=== PATIENT | male | born 1955 | race Asian ===

== ENCOUNTER 2016-12-04 00:13 | Emergency (ER) | payer SELFPAY ==
[~2016-12-04] VITALS: Ht 172.7 cm; Wt 59.0 kg
[2016-12-04 00:26] VITALS: Ht 172.7 cm; Wt 59.0 kg
--- NOTE | 2016-12-04 02:41 | ERD ---
ER Documentation Chief Complaint Date/Time DATE: 12/04/16 TIME: 02:37 Chief Complaint sp GLF, left hand abrasion, right knee pain, old swelling right hand HPI 61-year-old male presents to emergency department for complaints of right knee pain and abrasion, left hand pain and abrasion after tripping and falling while walking today. Patient denies any dizziness when this happened. Patient also is complaining of right hand pain and swelling, has had chronic swelling on the right hand, in the last 2 days, the swelling and redness has been more worse, throbbing pain, 8/10 scale, having any fever. Patient denies any trauma on affected area of the right hand. Patient denies any fever or chills. Patient denies any numbness or tingling. Patient did not take any medications to apply symptoms. ROS All systems reviewed and are negative except as per history of present illness. Medications Home Meds Active Scripts Tramadol HCl (Tramadol HCl) 50 Mg Tablet, 50 MG PO Q6 Y for SEVERE PAIN LEVEL 7- 10, #20 TAB Prov:MAY HANCOCK NP 12/04/16 Sulfamethoxazole-Trimethoprim* (Bactrim* DS) 800-160 Mg Tab, 1 TAB PO BID for 10 Days, TAB Prov:MAY HANCOCK NP 12/04/16 Amoxicillin/Potassium Clav (Amox-Clav 875-125 mg Tablet) 875-125 mg Tab, 1 TAB PO BID for 10 Days, #20 TAB Prov:MAY HANCOCK NP 12/04/16 Reported Medications [none] Unknown Strength No Conflict Check 12/04/16 Allergies Allergies: Coded Allergies: No Known Allergy (Unverified , 12/04/16) PMhx/Soc Medical and Surgical Hx: pt denies Medical Hx, pt denies Surgical Hx History of Surgery: No Anesthesia Reaction: No Hx Neurological Disorder: No Hx Respiratory Disorders: No Hx Cardiac Disorders: No Hx Psychiatric Problems: No Hx Miscellaneous Medical Probl: No Hx Alcohol Use: No Hx Substance Use: No Hx Tobacco Use: No Smoking Status: Never smoker FmHx Family History: No coronary disease, No diabetes, No other Physical Exam Vitals Vital Signs Date Time Temp Pulse Resp B/P Pulse Ox O2 Delivery O2 Flow Rate FiO2 12/04/16 03:46 98.0 12/04/16 03:09 96 Room Air 12/04/16 03:06 98.8 84 16 104/73 12/04/16 00:26 97.8 113 20 121/86 100 Physical Exam GENERAL: The patient is well developed and appropriate for usual state of health, in no apparent distress. CHEST: Clear to auscultation bilaterally. There are no rales, wheezes or rhonchi. HEART: Regular rate and rhythm. No murmurs, clicks, rubs or gallops. No S3 or S4. ABDOMEN: Soft, nontender and nondistended. Good bowel sounds. No rebound or guarding. No gross peritonitis. No gross organomegaly or masses. No Santiago sign or McBurney point tenderness. BACK: No midline or flank tenderness. EXTREMITIES: Noted redness and swelling of the right hand, good circulation, tender on palpation. Able to do full range of motion of the right knee and the left hand without any restriction, noted abrasion on the right knee and the dorsal aspect of the left hand. Equal pulses bilaterally. full range of motion of other joints of the body. Grossly neurovascularly intact. NEURO: Alert and oriented. Cranial nerves 2-12 intact. Motor strength in all 4 extremities with 5/5 strength. Sensation grossly intact. Normal speech and gait. SKIN: There is no apparent rash or petechia. The skin is warm and dry. HEMATOLOGIC AND LYMPHATIC: There is no evidence of excessive bruising or lymphedema. No gross cervical, axillary, or inguinal lymphadenopathy. Result Diagram: 12/04/16 0249 12/04/16 0249 Results 24 hrs Laboratory Tests Test 12/04/16 02:49 White Blood Count 11.610^3/ul Red Blood Count 4.4910^6/ul Hemoglobin 13.5g/dl Hematocrit 40.8% Mean Corpuscular Volume 90.9fl Mean Corpuscular Hemoglobin 30.1pg Mean Corpuscular Hemoglobin Concent 33.1g/dl Red Cell Distribution Width 16.0% Platelet Count 58205^3/UL Mean Platelet Volume 11.0fl Neutrophils % 85.0% Lymphocytes % 5.9% Monocytes % 7.7% Eosinophils % 0.2% Basophils % 0.2% Nucleated Red Blood Cells % 0.0/100WBC Neutrophils # 9.910^3/ul Lymphocytes # 0.710^3/ul Monocytes # 0.910^3/ul Eosinophils # 0.010^3/ul Basophils # 0.010^3/ul Nucleated Red Blood Cells # 0.010^3/ul Sodium Level 136mmol/L Potassium Level 3.5mmol/L Chloride Level 94mmol/L Carbon Dioxide Level 31mmol/L Anion Gap 15 Blood Urea Nitrogen 35mg/dl Creatinine 1.30mg/dl Glucose Level 120mg/dl Lactic Acid Level 1.2mmol/L Calcium Level 8.7mg/dl Total Bilirubin 0.5mg/dl Direct Bilirubin 0.00mg/dl Indirect Bilirubin 0.5mg/dl Aspartate Amino Transf (AST/SGOT) 43IU/L Alanine Aminotransferase (ALT/SGPT) 35IU/L Alkaline Phosphatase 265IU/L Total Protein 6.9g/dl Albumin 2.9g/dl Globulin 4.00g/dl Albumin/Globulin Ratio 0.72 Current Medications Medications (Trade) Dose Ordered Sig/Xochilt Route PRN Reason Start Time Stop Time Status Last Admin Dose Admin Piperacillin Sod/ Tazobactam Sod (Zosyn 3.375gm/ 100 ml (Pmx)) 100 ml @ 200 mls/hr ONCE ONCE IVPB 12/04/16 04:30 12/04/16 04:59 PROCEDURE: XR Left hand. CLINICAL INDICATION: Left hand pain status post fall. TECHNIQUE: AP, oblique and lateral views of the left hand were obtained. COMPARISON: No prior studies are available for comparison. FINDINGS: Reference marker is directed towards the medial wrist. Deep to the reference marker there are small erosions at the ulnar styloid as well as at the triquetrum and lunate. In the lateral wrist there is a central erosion at the scaphoid. Small marginal erosions are seen at the medial base of the second proximal phalanx. Juxta-articular erosions are seen at the interphalangeal joint of the left thumb as well as at the fourth and fifth PIP joints and the third DIP joint, greater at the third DIP joint. Findings suggest an erosive osteoarthropathy. Soft tissue swelling is seen over the interphalangeal joint of the thumb as well as at the third, fourth and fifth PIP joints and the second, third and fourth DIP joints. Bone mineralization is substantially preserved. Erosions at the ulnar styloid and at the medial base of the second proximal phalanx would be concerning for an manifestation of rheumatoid arthritis, and are otherwise nonspecific. IMPRESSION: 1. Extensive small osseous erosions in the wrist as well as at the interphalangeal joints of the thumb and fingers suggest a variant of erosive osteoarthritis. 2. No evident acute fracture or dislocation. RPTAT: [facility] Physician Tera Date Time Electronically viewed and signed by Bennie James Physician on 12/04/2016 03:33 RS/ CC: MAY HANCOCK NP I discussed this case with my attending physician, patient is right-hand cellulitis, he said to treat the patient with IV Zosyn, sent the patient home with Augmentin and Bactrim, strict return to her percussion for worsening symptoms, recheck in 2 days. Patient does not have any symptoms of sepsis at this time, lactic acid is normal, mild elevation of white count most likely from the infection. Procedures/MDM Medical Decision Making: Patient's right knee pain left hand pain most likely from the abrasion, patient right-hand is red and swollen consistent with cellulitis, no symptoms of sepsis at this time. There is no suspicion for neurovascular compromise. Patient has intact sensation and circulation of the affected extremity. There is low suspicion for septic arthritis. Patient does not have any fever. Radiology exams of the affected area does not show any fracture or dislocation. Disposition: Home. Patient is given prescription for tramadol for pain, Augmentin, Bactrim. Patient was advised to elevate the affected area and apply ice on affected area. Patient was advised that if symptoms are worse, numbness , tingling, high fever, unable to move joint, worsening symptoms, to return to emergency department immediately. Otherwise, patient is advised to follow up with the primary care doctor in 2 days Departure Diagnosis: Primary Impression: Cellulitis Site of cellulitis: extremity Site of cellulitis of extremity: upper extremity Laterality: right Qualified Code: L03.113 - Cellulitis of right upper extremity Additional Impressions: Abrasions of multiple sites Knee contusion Encounter type: initial encounter Laterality: right Qualified Code: S80.01XA - Contusion of right knee, initial encounter Hand contusion Encounter type: initial encounter Laterality: left Qualified Code: S60.222A - Contusion of left hand, initial encounter Condition: Stable Patient Instructions: Abrasion, Cellulitis, Contusion, Hand, Contusion, Lower Extremity Additional Instructions: Patient is given prescription for tramadol for pain, Augmentin, Bactrim. Patient was advised to elevate the affected area and apply ice on affected area. Patient was advised that if symptoms are worse, numbness, tingling, high fever, unable to move joint, worsening symptoms, to return to emergency department immediately. Otherwise, patient is advised to follow up with the primary care doctor in 2 days MAY HANCOCK NP Dec 04, 2016 02:40
[2016-12-04 03:18] LABS: ADD SCAN DIFF NO
--- NOTE | 2016-12-04 03:33 | RADRPT ---
PROCEDURE: XR Left hand. CLINICAL INDICATION: Left hand pain status post fall. TECHNIQUE: AP, oblique and lateral views of the left hand were obtained. COMPARISON: No prior studies are available for comparison. FINDINGS: Reference marker is directed towards the medial wrist. Deep to the reference marker there are small erosions at the ulnar styloid as well as at the triquetrum and lunate. In the lateral wrist there is a central erosion at the scaphoid. Small marginal erosions are seen at the medial base of the second proximal phalanx. Juxta-articular erosions are seen at the interphalangeal joint of the left thumb as well as at the f ourth and fifth PIP joints and the third DIP joint, greater at the third DIP joint. Findings suggest an erosive osteoarthropathy. Soft tissue swelling is seen over the interphalangeal joint of the thumb as well as at the third, fourth and fifth PIP joints and the second, third and f ourth DIP joints. Bone mineralization is substantially preserved. Erosions at the ulnar styloid and at the medial base of the second proximal phalanx would be concern ing for an manifestation of rheumatoid arthritis, and are otherwise nonspecific. IMPRESSION: 1. Extensive small osseous erosions in the wrist as well as at the interphalangeal joints of the th umb and fingers suggest a variant of erosive osteoarthritis. 2. No evident acute fracture or dislocation. RPTAT: [facility] Physician Tera Date Time Electronically viewed and signed by Physician Tera on 12/04/2016 03:33 RS/
[2016-12-04 03:35] LABS: BASOPHILS % 0.2 % (0.0-2.0); EOSINOPHILS % 0.2 % (0.0-7.0); HEMATOCRIT 40.8 % (42.0-52.0); HEMOGLOBIN 13.5 g/dl (14.0-18.0); LYMPHOCYTES # 0.7 10^3/ul (0.8-2.9); LYMPHOCYTES % 5.9 % (15.0-51.0); MEAN CORPUSCULAR HEMOGLOBIN 30.1 pg (29.0-33.0); MEAN CORPUSCULAR HGB CONC 33.1 g/dl (32.0-37.0); MEAN CORPUSCULAR VOLUME 90.9 fl (82.0-101.0); MONOCYTE # 0.9 10^3/ul (0.3-0.9); MONOCYTES % 7.7 % (0.0-11.0); NEUTROPHIL # 9.9 10^3/ul (1.6-7.5); PLATELET COUNT 261 10^3/UL (140-415); RED BLOOD COUNT 4.49 10^6/ul (4.70-6.10); WHITE BLOOD COUNT 11.6 10^3/ul (4.8-10.8)
[2016-12-04 03:42] LABS: ALBUMIN 2.9 g/dl (3.3-4.9); POTASSIUM 3.5 mmol/L (3.5-5.1)
--- NOTE | 2016-12-04 03:43 | RADRPT ---
PROCEDURE: Right knee x-ray CLINICAL INDICATION: Right knee pain status post fall and injury. TECHNIQUE: AP, lateral and oblique views of the right knee were obtained. COMPARISON: None FINDINGS: There is normal mineralization. No acute fracture or dislocation is seen. Superior and inferior enthesophytes of the patella. Small marginal osteophytes at the articular pat lyle. Nonspecific chronic periosteal reactions are seen over the posterior femoral metaphysis, the posteri or partially visualized mid femoral diaphysis, proximal metaphysis of the medial tibia, and the prox imal diaphyses of the fibula and tibia. There is a likely small joint effusion, otherwise nonspecific. There is no significant soft tissue swelling. Nonspecific calcific density is seen in the region of the insertional popliteus. MRI examination ma y be of further use to exclude an osteochondral body in this region. IMPRESSION: Small joint effusion, without acute fracture. RPTAT: [facility] Physician Tera Date Time Electronically viewed and signed by Physician Tera on 12/04/2016 03:42 RS/
[2016-12-04 03:44] LABS: CREATININE 1.3 mg/dl (0.61-1.24)
[2016-12-04 03:45] LABS: ALBUMIN/GLOBULIN RATIO 0.72; BILIRUBIN,INDIRECT 0.5 mg/dl (0-1.1); BILIRUBIN,TOTAL 0.5 mg/dl (0.2-1.3); CALCIUM 8.7 mg/dl (8.4-10.2); TOTAL PROTEIN 6.9 g/dl (6.1-8.1)
[2016-12-04] MEDS ORDERED: BACTDS PO (04:15)
[2016-12-04] MEDS ORDERED: AMOX1TAB10 PO (04:15)
[2016-12-04] MEDS ORDERED: TRAM50TA2 PO (04:15)
[2016-12-04] MEDS ORDERED: PIPER-TAZO 3.375 GM IV (PMX) 100 ML IVPB ONE (04:30)
[2016-12-04 05:25] VITALS: BP 120/73; PULSE 111; RESP 16; TEMP 97
== END 2016-12-04 05:26 | disposition home or self-care (01) ==
LOC: FTE 00:13
DX: L03.113 Cellulitis of right upper limb (principal); S80.01XA Contusion of right knee, initial encounter; S60.222A Contusion of left hand, initial encounter; W01.0XXA Fall on same level from slipping, tripping and stumbling without subsequent striking against object, initial encounter; Y92.9 Unspecified place or not applicable
CPT/HCPCS: 36415; 73562; 80053; 83605; 85025; 96374

== ENCOUNTER 2017-07-19 20:49 | Inpatient (IN) | payer BC ==
[~2017-07-19] VITALS: Ht 167.6 cm; Wt 53.2 kg
[~2017-07-19 20:49] MED LIST: AMOX1TAB10 PO; BACTDS PO; TRAM50TA2 PO
--- NOTE | 2017-07-19 21:08 | ERD ---
ER Documentation Chief Complaint Chief Complaint BIB FAMILY C/O CHEST PAIN WITH SOB X 1 WEEK. HPI This is a 62-year-old male who is presenting with chest pain and shortness of breath. The patient describes moderate to severe left-sided nonradiating chest pain that is sharp in quality, worsens with walking and exertion, previously relieved by rest, but the pain has become present even at rest over the last day. The patient noticed the chest pain 1-2 weeks ago, but it had been improving with rest, so he did not want to come in at that time. The patient also endorses shortness of breath and dyspnea on exertion as well as at rest presently. He does not endorse any sweating episodes. He has been a little lightheaded. He has not been nauseated and he has not vomited. The patient denies feeling sick recently. The patient denies fever or chills. The patient has had no headache or vision changes. The patient does not endorse neck or back pain. The patient denies abdominal pain or changes to bowel movements or urination. The patient has had no focal deficits. The patient has had no weakness or numbness or tingling to the face or extremities. ROS All systems reviewed and are negative except as per history of present illness. Medications Home Meds Active Scripts Tramadol HCl (Tramadol HCl) 50 Mg Tablet, 50 MG PO Q6 Y for SEVERE PAIN LEVEL 7- 10, #20 TAB Prov:MAY HANCOCK NP 12/04/16 Sulfamethoxazole-Trimethoprim* (Bactrim* DS) 800-160 Mg Tab, 1 TAB PO BID for 10 Days, TAB Prov:MAY HANCOCK NP 12/04/16 Amoxicillin/Potassium Clav (Amox-Clav 875-125 mg Tablet) 875-125 mg Tab, 1 TAB PO BID for 10 Days, #20 TAB Prov:MAY HANCOCK NP 12/04/16 Reported Medications Aspirin* (Aspirin* Chew) 81 Mg Tab.chew, 81 MG PO DAILY, TAB.CHEW 07/20/17 Carvedilol* (Coreg*) 12.5 Mg Tablet, 12.5 MG PO BID, #60 TAB 07/20/17 Rivaroxaban* (Xarelto*) 20 Mg Tablet, 20 MG PO WITH DINNER, TAB 07/20/17 Furosemide* (Furosemide*) 40 Mg Tablet, 40 MG PO DAILY, TAB 07/20/17 [none] Unknown Strength No Conflict Check 12/04/16 Allergies Allergies: Coded Allergies: No Known Allergy (Unverified , 12/04/16) PMhx/Soc History of Surgery: No Anesthesia Reaction: No Hx Neurological Disorder: No Hx Respiratory Disorders: No Hx Cardiac Disorders: Yes (HTN, previous MT, CHF) Hx Psychiatric Problems: No Hx Miscellaneous Medical Probl: Yes (CKD) Hx Alcohol Use: No Hx Substance Use: No Hx Tobacco Use: No FmHx Family History: No diabetes Physical Exam Vitals Vital Signs Date Time Temp Pulse Resp B/P Pulse Ox O2 Delivery O2 Flow Rate FiO2 07/19/17 23:10 77 20 128/72 99 Room Air 07/19/17 20:52 96.8 52 18 163/82 99 Physical Exam Const: No apparent distress, well-developed, well-nourished Head: Normocephalic, Atraumatic Eyes: Normal Conjunctiva. Extraocular movements intact. Pupils equal, round and reactive to light ENT: Normal External Ears, Nose and Mouth. Neck: Full range of motion. No meningismus. Resp: + Bibasilar rales, No wheezes or rhonchi Cardio: Regular rate and rhythm. No murmurs, rubs or gallops Abd: Soft, non tender, non distended. Normal bowel sounds Skin: No petechiae or rashes Back: No midline tenderness. No CVA tenderness Ext: No cyanosis, or edema Neur: Awake and alert, oriented 4. Cranial nerves intact. No facial droop. Normal strength, sensation and coordination. Psych: Anxious appearing Result Diagram: 07/20/17 0757 07/20/17 0757 Results 24 hrs Laboratory Tests Test 07/19/17 21:15 White Blood Count 4.910^3/ul Red Blood Count 5.2510^6/ul Hemoglobin 15.3g/dl Hematocrit 47.2% Mean Corpuscular Volume 89.9fl Mean Corpuscular Hemoglobin 29.1pg Mean Corpuscular Hemoglobin Concent 32.4g/dl Red Cell Distribution Width 14.0% Platelet Count 08499^3/UL Mean Platelet Volume 10.1fl Neutrophils % 60.0% Lymphocytes % 26.3% Monocytes % 10.0% Eosinophils % 2.9% Basophils % 0.8% Nucleated Red Blood Cells % 0.0/100WBC Neutrophils # 2.910^3/ul Lymphocytes # 1.310^3/ul Monocytes # 0.510^3/ul Eosinophils # 0.110^3/ul Basophils # 0.010^3/ul Nucleated Red Blood Cells # 0.010^3/ul Sodium Level 141mmol/L Potassium Level 4.9mmol/L Chloride Level 107mmol/L Carbon Dioxide Level 22mmol/L Anion Gap 17 Blood Urea Nitrogen 45mg/dl Creatinine 1.99mg/dl Glucose Level 107mg/dl Calcium Level 9.3mg/dl Troponin I 0.076ng/ml Current Medications Medications (Trade) Dose Ordered Sig/Xochilt Route PRN Reason Start Time Stop Time Status Last Admin Dose Admin Aspirin (Aspirin) 324 mg ONCE ONCE PO 07/19/17 21:30 07/19/17 21:31 DC 07/19/17 21:23 Procedures/MDM MDM The patient's presentation warrants further investigation. The patient is a little anxious with bibasilar rales, but he otherwise appears okay. He does still endorse chest pain, which is concerning. I am concerned about exertional angina turning into unstable angina in this patient. A cardiac workup will be completed. LABS The patient's blood work was obtained and reviewed. The patient's CBC shows no leukocytosis and no left shift. The patient is afebrile and does not appear systemically ill. I do not suspect a systemic infection. The patient is not anemic today. The patient's platelet count is unremarkable. The patient's BMP shows no signs of metabolic or electrolyte emergencies. The patient has CKD that is mostly unchanged from previous studies. The patient does have a troponin that is not negative but also within normal limits of the test at 0.076. This could be related to CKD. The patient does have clinical evidence of heart failure as well. A BNP will be sent off for further evaluation of the patient's cardiac status. EKG EKG read by me: Rate/Rhythm: Regular rate and rhythm at a rate of 94 Intervals: Normal MI interval and QTc. Slightly widened QRS duration at 130 ms with a possible right bundle branch block [place]: Left shifted Left ventricular hypertrophy with repolarization abnormality. T-wave inversions in leads V1 and V2, but no ST or T-wave changes concerning for acute coronary syndrome. Impression: No evidence of acute ischemia or arrhythmia IMAGING CXR FINDINGS: The heart is enlarged. Aortic calcifications are present. There is a small left pleural effusion and/or subsegmental atelectasis. A superimposed left basilar pneumonia cannot be excluded. Degenerative changes of the spine and shoulder joints are present. IMPRESSION: Cardiomegaly with a small left pleural effusion and/or subsegmental atelectasis. A superimposed left basilar pneumonia cannot be excluded. Electronically viewed and signed by Eliceo Glaser Physician on 07/19/2017 22:14 TREATMENT/DISPOSITION I placed the patient's heart score at 6 for age, risk factors, nonspecific repolarization changes and a troponin that is not negative. The patient's symptoms could be related to heart failure and demand ischemia, but angina cannot be excluded at this time. I do not feel that the patient requires cardiac Traffic Chief immediately, but I do feel that he would benefit from admission to the hospital for further evaluation of his cardiac status. The patient was given aspirin in the emergency department. At this time, I feel that the patient requires admission for further evaluation and management. The patient will be admitted to Panel in accordance with the patient's insurance. The patient was accepted by Dr. Bryan at 00:15AM on 07/20/2017. The patient's blood pressure was elevated at greater than 120/80 while in the emergency department. The patient was otherwise stable with no evidence of hypertensive urgency or emergency. The patient will require reevaluation in the hospital. Departure Diagnosis: Primary Impression: Chest pain Chest pain type: unspecified Qualified Code: R07.9 - Chest pain, unspecified type Additional Impressions: Angina of effort CHF (congestive heart failure) Congestive heart failure type: unspecified congestive heart failure type Congestive heart failure chronicity: acute on chronic Qualified Code: I50.9 - Acute on chronic congestive heart failure, unspecified congestive heart failure type Elevated serum creatinine Condition: KAYCE Barajas MD Jul 19, 2017 21:08
[2017-07-19 21:25] LABS: BASOPHILS % 0.8 % (0.0-2.0); EOSINOPHILS # 0.1 10^3/ul (0.0-0.5); EOSINOPHILS % 2.9 % (0.0-7.0); HEMATOCRIT 47.2 % (42.0-52.0); HEMOGLOBIN 15.3 g/dl (14.0-18.0); LYMPHOCYTES # 1.3 10^3/ul (0.8-2.9); LYMPHOCYTES % 26.3 % (15.0-51.0); MEAN CORPUSCULAR HEMOGLOBIN 29.1 pg (29.0-33.0); MEAN CORPUSCULAR HGB CONC 32.4 g/dl (32.0-37.0); MEAN CORPUSCULAR VOLUME 89.9 fl (82.0-101.0); MEAN PLATELET VOLUME 10.1 fl (7.4-10.4); MONOCYTE # 0.5 10^3/ul (0.3-0.9); NEUTROPHIL # 2.9 10^3/ul (1.6-7.5); PLATELET COUNT 213 10^3/UL (140-415); RED BLOOD COUNT 5.25 10^6/ul (4.70-6.10); WHITE BLOOD COUNT 4.9 10^3/ul (4.8-10.8)
[2017-07-19] MEDS ORDERED: ASPIRIN 81 MG TAB PO ONE (21:30)
[2017-07-19 21:41] LABS: CALCIUM 9.3 mg/dl (8.4-10.2); CREATININE 1.99 mg/dl (0.61-1.24); POTASSIUM 4.9 mmol/L (3.5-5.1)
[2017-07-19 21:53] LABS: TROPONIN-I 0.076 ng/ml (0.00-0.12)
--- NOTE | 2017-07-19 22:14 | RADRPT ---
PROCEDURE: XR Chest. CLINICAL INDICATION: Chest Pain. TECHNIQUE: Single frontal view of the chest. COMPARISON: None. FINDINGS: The heart is enlarged. Aortic calcifications are present. There is a small left pleural effusion and/or subsegmental atelectasis. A superimposed left basilar pneumonia cannot be excluded. Degenerative changes of the spine and shoulder joints are present. IMPRESSION: 1. Cardiomegaly with a small left pleural effusion and/or subsegmental atelectasis. A superimposed l eft basilar pneumonia cannot be excluded. RPTAT:AAJJ Physician Robert Date Time Electronically viewed and signed by Eliceo Glaser Physician on 07/19/2017 22:14 QL/
[2017-07-20] VITALS (13 sets, daily range): BP systolic 119–145; BP diastolic 78–103; PULSE 72–109; RESP 18–22; Ht 167.6 cm; Wt 53.2 kg
[2017-07-20] MEDS ORDERED: ONDANSETRON 4 MG INJ IV PRN ×2 (01:00→02:30)
[2017-07-20] MEDS ORDERED: ACETAMINOPHEN 325 MG TAB PO PRN (01:00)
[2017-07-20] MEDS ORDERED: NACL 0.9% 3 ML SYG IV SCH (02:30)
[2017-07-20] MEDS ORDERED: DOCUSATE SODIUM 100 MG CAP PO PRN (02:30)
[2017-07-20] MEDS ORDERED: morphine 2 MG INJ IV PRN (02:30)
[2017-07-20] MEDS ORDERED: BISACODYL (EC) 5 MG TAB PO PRN (02:30)
[2017-07-20 03:10] LABS: TROPONIN-I 0.076 ng/ml (0.00-0.12)
[2017-07-20 03:16] LABS: CK-MB 4.9 ng/ml (0.0-2.4)
[2017-07-20] MEDS ORDERED: ASPI81TA3 PO (05:17)
[2017-07-20] MEDS: ACETAMINOPHEN 325 MG TAB PO PRN (05:17)
[2017-07-20] MEDS ORDERED: RIVA20TA PO (05:17)
[2017-07-20] MEDS ORDERED: CARV12.598 PO (05:17)
[2017-07-20] MEDS ORDERED: FURO40TA4 PO (05:17)
[2017-07-20] MEDS ORDERED: LEVOFLOXACIN 750MG/D5W (PMX) 150 ML IVPB ONE (05:30)
[2017-07-20] MEDS ORDERED: FUROSEMIDE 40 MG INJ IV ONE (05:30)
[2017-07-20 08:23] LABS: BASOPHIL # 0.1 10^3/ul (0.0-0.1); BASOPHILS % 0.9 % (0.0-2.0); EOSINOPHILS # 0.2 10^3/ul (0.0-0.5); EOSINOPHILS % 3.6 % (0.0-7.0); HEMATOCRIT 44.8 % (42.0-52.0); HEMOGLOBIN 14.4 g/dl (14.0-18.0); LYMPHOCYTES # 1.3 10^3/ul (0.8-2.9); MEAN CORPUSCULAR HGB CONC 32.1 g/dl (32.0-37.0); MEAN CORPUSCULAR VOLUME 90.3 fl (82.0-101.0); MEAN PLATELET VOLUME 10.4 fl (7.4-10.4); MONOCYTE # 0.6 10^3/ul (0.3-0.9); MONOCYTES % 11.7 % (0.0-11.0); NEUTROPHIL # 3.1 10^3/ul (1.6-7.5); NEUTROPHILS % 58.6 % (39.0-77.0); PLATELET COUNT 200 10^3/UL (140-415); RED BLOOD COUNT 4.96 10^6/ul (4.70-6.10); RED CELL DISTRIBUTION WIDTH 13.9 % (11.5-14.5); WHITE BLOOD COUNT 5.3 10^3/ul (4.8-10.8)
[2017-07-20 08:51] LABS: ALBUMIN 3.2 g/dl (3.3-4.9); ALBUMIN/GLOBULIN RATIO 0.94; CALCIUM 9.1 mg/dl (8.4-10.2); CHOL/HDL RATIO 4.9 RATIO; CREATININE 1.79 mg/dl (0.61-1.24); MAGNESIUM 2.2 mg/dl (1.7-2.5); POTASSIUM 4.9 mmol/L (3.5-5.1); TOTAL PROTEIN 6.6 g/dl (6.1-8.1)
[2017-07-20 08:57] LABS: TROPONIN-I 0.07 ng/ml (0.00-0.12)
[2017-07-20 08:59] LABS: CK-MB 4.14 ng/ml (0.0-2.4)
[2017-07-20 09:15] LABS: THYROID STIMULATING HORMONE 4.64 MIU/L (0.465-4.680)
[2017-07-20] MEDS ORDERED: FUROSEMIDE 40 MG INJ IV SCH (09:30)
[2017-07-20] MEDS: LISINOPRIL 5 MG TAB PO SCH (09:51)
--- NOTE | 2017-07-20 10:00 | HP ---
Date/Time of Note Date/Time of Note DATE: 07/20/17 TIME: 09:42 Assessment/Plan VTE Prophylaxis VTE Prophylaxis Intervention: other Lines/Catheters IV [facility]ter [facility]from [facility]): Saline Lock Urinary Cath still in place: No Assessment/Plan Chief Complaint/Hosp Course 62 yo male with acute on chronic decompensated CHF exacerbation, h/o DVT Pre eddy read of TTE shows severely reduced EF in both ventricles, JVD very high consistent with above diagnsosis Acute on chronic decompensated CHF exacerbation: - Start IV diuresis to euvolemia - Restart neurohormonal blockade: lisinopril 5, Coreg 3.125 for now - [place] indicated eventually as well - Has had an ischemic evaluation already it sounds like, need collateral. Will hold aspirin/statin for now H/o DVT: - Continue Xarelto Telemetry Discharge when euvolemic Problems: HPI/ROS Admit Date/Time Admit Date/Time Jul 20, 2017 at 00:35 Hx of Present Illness 62 yo male with h/o CHF and DVT who presents with 2 weeks SOB Patient describes history of heart disease since September. Has apparently undergone angioplasty without stent he says. Has had a few admissions for CHF exacerbations. At some point was also diagnosed with a DVT and is on Xarelto. Reports medication compliance to Carvedilol, lasix, and xarelto, though cannot state doses. 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 PMH/Family/Social Past Medical History Medical History: congestive heart failure Past Surgical History Past Surgical Hx: angioplasty Family History Significant Family History: no pertinent family hx Social History Alcohol Use: none Smoking Status: Former smoker Drug Use: none Exam/Review of Systems Vital Signs Vitals Vital Signs Date Time Temp Pulse Resp B/P Pulse Ox O2 Delivery O2 Flow Rate FiO2 07/20/17 08:00 91 07/20/17 07:47 98.0 18 129/95 92 07/20/17 01:48 Room Air Intake and Output 07/19/17 07/19/17 07/20/17 14:59 22:59 06:59 Intake Total 340 ml Balance 340 ml Exam Exam Uncomfortable appearing Breathing slightly quickly but non labored JVD very elevated + heave, displaced PMI + 2/6 systolic murmur RRR No peripheral edema Labs Result Diagram: 07/20/17 0757 07/20/17 0757 Medications Medications Current Medications Ondansetron HCl (Zofran Inj) 4 mg Q6H PRN IV NAUSEA AND/OR VOMITING; Start at 02:30 Acetaminophen (Tylenol Tab) 650 mg Q6H PRN PO PAIN LEVEL 1-3 OR FEVER Last administered on 07/20/17 05:17; Admin Dose 650 MG; Start 07/20/17 at 02:30 Morphine Sulfate (morphine) 2 mg Q4H PRN IV PAIN LEVEL 7-10 Last administered on 07/20/17 04:56; Admin Dose 2 MG; Start 07/20/17 at 02:30 Docusate Sodium (Colace) 100 mg Q12H PRN PO CONSTIPATION; Start 07/20/17 at 02 :30 Bisacodyl (Dulcolax) 5 mg DAILY PRN PO CONSTIPATION; Start 07/20/17 at 02:30 Lisinopril (Zestril) 5 mg DAILY PO ; Start 07/20/17 at 10:00; Status UNV Carvedilol (Coreg) 3.125 mg BID PO ; Start 07/20/17 at 21:00; Status UNV ARABELLA KOO MD Jul 20, 2017 10:00
--- NOTE | 2017-07-20 10:25 | CONS ---
Date/Time of Note Date/Time of Note DATE: 07/20/17 TIME: 10:10 Assessment/Plan Assessment/Plan Chief Complaint/Hosp Course Acute on chronic systolic biventricular heart failure: EF <20% by echo here with biventricular heart failure. By exam has mild evidence of hypoperfusion so will need aggressive diuresis and if fails, may need inotropic support. Will eventually need eval for ICD and even transplant. Chest pain: known normal coronaries and trops negative. Likely from elevated LVEDP from ADHF NICM: EF <20% Acute vs chronic renal failure: ?component of cardiorenal -lasix 60mg IV BID -add metolazone -hold coreg for now -ok for lisinopril, watch renal function -monitor closely for need for ICU transfer and inotropic support Problems: Consultation Date/Type/Reason Admit Date/Time Jul 20, 2017 at 00:35 Date of Consultation: Jul 20, 2017 Type of Consultation: Cardiology Reason for Consultation Dyspnea/chest pain Referring Provider: JANIE RANDHAWA Hx of Present Illness 62 yo M with a h/o nonischemic cardiomyopathy (cath 2010 normal per pt), DVT, who presented with dyspnea/orthopnea. The pt notes that he gets his f/u at [facility] and they have been discussing ICD placement. He has been hospitalized multiple times for heart failure in the past year. He is not on the transplant list. He also has been complaining of chest pressure. per HPI Past Medical History per hPI Medical History: congestive heart failure Past Surgical History Past Surgical Hx: angioplasty Social History Alcohol Use: none Smoking Status: Former smoker Drug Use: none Exam/Review of Systems Vital Signs Vitals Vital Signs Date Time Temp Pulse Resp B/P Pulse Ox O2 Delivery O2 Flow Rate FiO2 07/20/17 08:00 91 07/20/17 07:47 98.0 18 129/95 92 07/20/17 01:48 Room Air Intake and Output 07/19/17 07/19/17 07/20/17 14:59 22:59 06:59 Intake Total 340 ml Balance 340 ml Exam Constitutional: oriented, No alert (slightly somnolent ), No distress Psych: nl mood/affect, no complaints Head: atraumatic, normocephalic Neck: jvd (12cm) Respiratory: crackles/rales (mild ), No clear to auscultation Cardiovascular: S3, regular rate and rhythm, systolic murmur (3/6 HSM), No edema Gastrointestinal: non-tender, soft, No distended Musculoskeletal: No nl extremities to inspection (cool extremities ) Neurological: nl mental status, nl speech Skin: No rash or lesions Results sinus, biatrial enlargement, RBBB Result Diagram: 07/20/17 0757 07/20/17 0757 Results 24 hrs Laboratory Tests Test 07/19/17 21:15 07/20/17 02:05 07/20/17 07:57 White Blood Count 4.9 # 5.3 Red Blood Count 5.25 4.96 Hemoglobin 15.3 14.4 Hematocrit 47.2 44.8 Mean Corpuscular Volume 89.9 90.3 Mean Corpuscular Hemoglobin 29.1 29.0 Mean Corpuscular Hemoglobin Concent 32.4 32.1 Red Cell Distribution Width 14.0 13.9 Platelet Count 213 200 Mean Platelet Volume 10.1 10.4 Neutrophils % 60.0 58.6 Lymphocytes % 26.3 25.0 Monocytes % 10.0 11.7 H Eosinophils % 2.9 3.6 Basophils % 0.8 0.9 Nucleated Red Blood Cells % 0.0 0.0 Neutrophils # 2.9 3.1 Lymphocytes # 1.3 1.3 Monocytes # 0.5 0.6 Eosinophils # 0.1 0.2 Basophils # 0.0 0.1 Nucleated Red Blood Cells # 0.0 0.0 Sodium Level 141 140 Potassium Level 4.9 4.9 Chloride Level 107 110 Carbon Dioxide Level 22 21 Anion Gap 17 H 14 Blood Urea Nitrogen 45 H 44 H Creatinine 1.99 H 1.79 H Glucose Level 107 92 Calcium Level 9.3 9.1 Troponin I 0.076 0.076 0.070 Creatine Kinase 155 127 Creatine Kinase Index 3.2 3.3 Creatinine Kinase MB (Mass) 4.90 H 4.14 H B-Type Natriuretic Peptide 47948 H Hemoglobin A1c 5.6 Magnesium Level 2.2 Total Bilirubin 1.0 Direct Bilirubin 0.00 Indirect Bilirubin 1.0 Aspartate Amino Transf (AST/SGOT) 49 H Alanine Aminotransferase (ALT/SGPT) 44 Alkaline Phosphatase 110 Total Protein 6.6 Albumin 3.2 L Globulin 3.40 H Albumin/Globulin Ratio 0.94 Triglycerides Level 104 Cholesterol Level 143 LDL Cholesterol, Calculated 93 HDL Cholesterol 29 L Cholesterol/HDL Ratio 4.9 Thyroid Stimulating Hormone (TSH) 4.640 Medications Medications Current Medications Ondansetron HCl (Zofran Inj) 4 mg Q6H PRN IV NAUSEA AND/OR VOMITING; Start at 02:30 Acetaminophen (Tylenol Tab) 650 mg Q6H PRN PO PAIN LEVEL 1-3 OR FEVER Last administered on 07/20/17t 05:17; Admin Dose 650 MG; Start 07/20/17 at 02:30 Docusate Sodium (Colace) 100 mg Q12H PRN PO CONSTIPATION; Start 07/20/17 at 02 :30 Bisacodyl (Dulcolax) 5 mg DAILY PRN PO CONSTIPATION; Start 07/20/17 at 02:30 Lisinopril (Zestril) 5 mg DAILY PO ; Start 07/20/17 at 10:00 Carvedilol (Coreg) 3.125 mg BID PO ; Start 07/20/17 at 10:00 BLAISE RAMOS Jul 20, 2017 10:25
[2017-07-20] MEDS ORDERED: METOLAZONE 5 MG TAB PO SCH (11:30)
--- NOTE | 2017-07-20 11:46 | RADRPT ---
Echocardiogram Report Patient Name: LEVY YEH Gender: Male Date: 1955 Study Date: 20-Jul-2017 Vacuum System Tester: Noé Soni [facility] Location: [address] Ref. Physician: JANIE RANDHAWA Quality: Adequate Procedures: Transthoracic echocardiogram with complete 2D, M-Mode, and doppler examination. Indications: Chest Pain. 2D/M Mode Doppler Measurement Value Normal Ranges Measurement Value Normal Ranges LVIDd 2D 7.2 3.5 - 5.6 cm AV Peak Matthew 1.4 m/sec LVIDs 2D 6.4 2.1 - 4.1 cm AV Peak PG 7.9 mmHg LVPWd 2D 1.3 0.6 - 1.1 cm LVOT Peak Matthew 0.5 m/sec IVSd 2D 1.4 0.6 - 1.1 cm LVOT Peak PG 0.9 mmHg AoR Diam 2D 2.8 2.0 - 3.7 cm TR Peak Matthew 4.0 m/sec EDV 2D 272.9 cm3 TR Peak PG 64.0 mmHg ESV 2D 263.0 cm3 RVSP 72.0 mmHg LA Dimen 2D 4.6 2.3 - 4.0 cm Findings Left Ventricle: Normal left ventricular wall thickness. Severe enlargement of left ventricle cavity. Severe global left ventricular systolic dysfunction. Ejection fraction is visually estimated at <20 %. Right Ventricle: Severe enlargement of right ventricle. Severe right ventricular hypokinesis. Flattened Septum in diastole (`D`shaped left ventricle) consistent with RV volume overload. Left Atrium: There is severe enlargement of left atrium. Right Atrium: There is severe enlargement of right atrium. Mitral Valve: Normal appearance of the mitral valve. Moderate to severe mitral valve regurgitation. The regurgitation jet is eccentrically directed which may underestimate the severity of mitral regurgitation. Aortic Valve: No significant aortic stenosis. Normal trileaflet aortic valve structure. Trace aortic valve regurgitation. Tricuspid Valve: Normal appearance of the tricuspid valve. Estimated peak PA systolic pressure 72 mmHg. There is moderate tricuspid regurgitation. Pulmonic Valve: Pulmonic valve not well visualized. There is mild pulmonic regurgitation. Pericardium: Normal pericardium with no significant pericardial effusion. Aorta: Normal aortic root. IVC: Normal size with poor respiratory collapse consistent with elevated right atrial pressure. Conclusions 1.Normal left ventricular wall thickness. Severe enlargement of left ventricle cavity. Severe global left ventricular systolic dysfunction. Ejection fraction is visually estimated at <20 %. 2.Severe enlargement of right ventricle. Severe right ventricular hypokinesis. Flattened Septum in diastole (`D`shaped left ventricle) consistent with RV volume overload. 3.Moderate to severe mitral valve regurgitation. The regurgitation jet is eccentrically directed which may underestimate the severity of mitral regurgitation. 4.Moderate tricuspid regurgitation. 5.Severe biatrial enlargement. 6.Severe pulmonary HTN with estimated peak PA systolic pressure 72 mmHg based on RA pressure of at least 8 mmHg. Electronically Signed By: Leo Ruelas 20-Jul-2017 11:45:48 -0800 Patient Name: LEVY YEH Study Date: 20-Jul-2017 [id number]
[2017-07-20] MEDS: FUROSEMIDE 40 MG INJ IV SCH (17:21)
[2017-07-20] MEDS: RIVAROXABAN 20 MG TABLET PO SCH (17:21)
[2017-07-21] VITALS (12 sets, daily range): BP systolic 110–140; BP diastolic 78–99; PULSE 73–116; RESP 20
[2017-07-21] MEDS: ACETAMINOPHEN 325 MG TAB PO PRN ×3 (01:17→20:03)
[2017-07-21 06:21] LABS: BASOPHIL # 0.1 10^3/ul (0.0-0.1); EOSINOPHILS # 0.1 10^3/ul (0.0-0.5); EOSINOPHILS % 1.9 % (0.0-7.0); HEMATOCRIT 49.7 % (42.0-52.0); HEMOGLOBIN 16.4 g/dl (14.0-18.0); LYMPHOCYTES # 1.2 10^3/ul (0.8-2.9); LYMPHOCYTES % 19.8 % (15.0-51.0); MEAN CORPUSCULAR HEMOGLOBIN 29.1 pg (29.0-33.0); MEAN CORPUSCULAR VOLUME 88.1 fl (82.0-101.0); MEAN PLATELET VOLUME 10.6 fl (7.4-10.4); MONOCYTE # 0.9 10^3/ul (0.3-0.9); NEUTROPHIL # 3.9 10^3/ul (1.6-7.5); NEUTROPHILS % 63.1 % (39.0-77.0); PLATELET COUNT 236 10^3/UL (140-415); RED BLOOD COUNT 5.64 10^6/ul (4.70-6.10); WHITE BLOOD COUNT 6.2 10^3/ul (4.8-10.8)
[2017-07-21] MEDS: FUROSEMIDE 40 MG INJ IV SCH (06:48)
[2017-07-21 06:56] LABS: ALBUMIN 3.6 g/dl (3.3-4.9); ALBUMIN/GLOBULIN RATIO 0.97; BILIRUBIN,INDIRECT 0.8 mg/dl (0-1.1); BILIRUBIN,TOTAL 0.8 mg/dl (0.2-1.3); CALCIUM 9.3 mg/dl (8.4-10.2); CREATININE 2.16 mg/dl (0.61-1.24); POTASSIUM 4.1 mmol/L (3.5-5.1); TOTAL PROTEIN 7.3 g/dl (6.1-8.1)
[2017-07-21 06:57] LABS: IRON 52 ug/dl (35-150)
[2017-07-21 07:07] LABS: TOTAL IRON BINDING CAPACITY 392 ug/dl (241-421)
[2017-07-21 07:27] LABS: THYROID STIMULATING HORMONE 2.39 MIU/L (0.465-4.680)
[2017-07-21 07:31] LABS: FERRITIN 81.5 ng/ml (11.1-264.0)
[2017-07-21] MEDS: LISINOPRIL 5 MG TAB PO SCH (08:34)
--- NOTE | 2017-07-21 12:52 | CONS ---
Date/Time of Note Date/Time of Note DATE: 07/21/17 TIME: 12:49 Assessment/Plan Assessment/Plan Chief Complaint/Hosp Course Acute on chronic systolic biventricular heart failure: EF <20% by echo here with biventricular heart failure. Will eventually need eval for ICD and even transplant. Better with diuresis Chest pain: known normal coronaries and trops negative. Likely from elevated LVEDP from ADHF NICM: EF <20% Acute vs chronic renal failure: ?component of cardiorenal. Slightly worse today -decrease to lasix 20mg IV BID -restart coreg tomorrow if doing well -ok for lisinopril, watch renal function Problems: Consultation Date/Type/Reason Admit Date/Time Jul 20, 2017 at 00:35 Initial Consult Date 07/20/17 Type of Consultation: Cardiology Referring Provider: JANIE RANDHAWA 24 HR Interval Summary Free Text/Dictation Feels better. More awake. Exam/Review of Systems Vital Signs Vitals Vital Signs Date Time Temp Pulse Resp B/P Pulse Ox O2 Delivery O2 Flow Rate FiO2 07/21/17 12:34 92 07/21/17 12:05 98.0 20 113/84 98 07/21/17 04:00 Room Air Intake and Output 07/20/17 07/20/17 07/21/17 15:00 23:00 07:00 Intake Total 150 ml 800 ml 400 ml Output Total 1650 ml Balance 150 ml -850 ml 400 ml Exam Constitutional: alert, oriented Psych: nl mood/affect, no complaints Head: atraumatic, normocephalic Neck: jvd (8cm), supple Respiratory: clear to auscultation Cardiovascular: regular rate and rhythm, No edema, No systolic murmur Gastrointestinal: non-tender, soft Neurological: nl mental status, nl speech Skin: other (warm extremities ) Results Result Diagram: 07/21/17 0554 07/21/17 0554 Results 24 hrs Laboratory Tests Test 07/21/17 05:54 White Blood Count 6.2 Red Blood Count 5.64 Hemoglobin 16.4 Hematocrit 49.7 Mean Corpuscular Volume 88.1 Mean Corpuscular Hemoglobin 29.1 Mean Corpuscular Hemoglobin Concent 33.0 Red Cell Distribution Width 14.0 Platelet Count 236 Mean Platelet Volume 10.6 H Neutrophils % 63.1 Lymphocytes % 19.8 Monocytes % 14.0 H Eosinophils % 1.9 Basophils % 1.0 Nucleated Red Blood Cells % 0.0 Neutrophils # 3.9 Lymphocytes # 1.2 Monocytes # 0.9 Eosinophils # 0.1 Basophils # 0.1 Nucleated Red Blood Cells # 0.0 Sodium Level 140 Potassium Level 4.1 Chloride Level 99 # Carbon Dioxide Level 29 Anion Gap 16 Blood Urea Nitrogen 47 H Creatinine 2.16 H Glucose Level 104 Calcium Level 9.3 Magnesium Level 2.0 Iron Level 52 Total Iron Binding Capacity 392 Percent Iron Saturation 13 L Ferritin 81.5 Total Bilirubin 0.8 Direct Bilirubin 0.00 Indirect Bilirubin 0.8 Aspartate Amino Transf (AST/SGOT) 42 Alanine Aminotransferase (ALT/SGPT) 42 Alkaline Phosphatase 119 Total Protein 7.3 Albumin 3.6 Globulin 3.70 H Albumin/Globulin Ratio 0.97 Thyroid Stimulating Hormone (TSH) 2.390 Medications Medications Current Medications Ondansetron HCl (Zofran Inj) 4 mg Q6H PRN IV NAUSEA AND/OR VOMITING; Start at 02:30 Acetaminophen (Tylenol Tab) 650 mg Q6H PRN PO PAIN LEVEL 1-3 OR FEVER Last administered on 07/21/17 01:17; Admin Dose 650 MG; Start 07/20/17 at 02:30 Docusate Sodium (Colace) 100 mg Q12H PRN PO CONSTIPATION; Start 07/20/17 at 02 :30 Bisacodyl (Dulcolax) 5 mg DAILY PRN PO CONSTIPATION; Start 07/20/17 at 02:30 Lisinopril (Zestril) 5 mg DAILY PO Last administered on 07/21/17 08:34; Admin Dose 5 MG; Start 07/20/17 at 10:00 BLAISE RAMOS Jul 21, 2017 12:51
--- NOTE | 2017-07-21 15:51 | PN ---
Date/Time of Note Date/Time of Note DATE: 07/21/17 TIME: 15:50 Assessment/Plan VTE Prophylaxis VTE Prophylaxis Intervention: other Lines/Catheters IV [facility]from [facility] Saline Lock Urinary Cath still in place: No Assessment/Plan Chief Complaint/Hosp Course 62 yo male with acute on chronic decompensated CHF exacerbation, h/o DVT Pre eddy read of TTE shows severely reduced EF in both ventricles, JVD very high consistent with above diagnsosis Acute on chronic decompensated CHF exacerbation: - Decrease IV diuresis to 20 lasix BID. Continue to euvolemia - Restart neurohormonal blockade: lisinopril 5, Coreg 3.125 tomorrow if stable - [place] indicated eventually as well - Has had an ischemic evaluation already it sounds like, need collateral. Will hold aspirin/statin for now H/o DVT: - Continue Xarelto Telemetry Discharge when euvolemic Problems: Subjective 24 Hr Interval Summary Free Text/Dictation Volume status improved since yesterday Still w orthopnea, less SOB Exam/Review of Systems Vital Signs Vitals Vital Signs Date Time Temp Pulse Resp B/P Pulse Ox O2 Delivery O2 Flow Rate FiO2 07/21/17 12:34 92 07/21/17 12:05 98.0 20 113/84 98 07/21/17 04:00 Room Air Intake and Output 07/20/17 07/20/17 07/21/17 15:00 23:00 07:00 Intake Total 150 ml 800 ml 400 ml Output Total 1650 ml Balance 150 ml -850 ml 400 ml Exam Improved JVD Results Result Diagram: 07/21/17 0554 07/21/17 0554 Results 24 hrs Laboratory Tests Test 07/21/17 05:54 White Blood Count 6.2 Red Blood Count 5.64 Hemoglobin 16.4 Hematocrit 49.7 Mean Corpuscular Volume 88.1 Mean Corpuscular Hemoglobin 29.1 Mean Corpuscular Hemoglobin Concent 33.0 Red Cell Distribution Width 14.0 Platelet Count 236 Mean Platelet Volume 10.6 H Neutrophils % 63.1 Lymphocytes % 19.8 Monocytes % 14.0 H Eosinophils % 1.9 Basophils % 1.0 Nucleated Red Blood Cells % 0.0 Neutrophils # 3.9 Lymphocytes # 1.2 Monocytes # 0.9 Eosinophils # 0.1 Basophils # 0.1 Nucleated Red Blood Cells # 0.0 Sodium Level 140 Potassium Level 4.1 Chloride Level 99 # Carbon Dioxide Level 29 Anion Gap 16 Blood Urea Nitrogen 47 H Creatinine 2.16 H Glucose Level 104 Calcium Level 9.3 Magnesium Level 2.0 Iron Level 52 Total Iron Binding Capacity 392 Percent Iron Saturation 13 L Ferritin 81.5 Total Bilirubin 0.8 Direct Bilirubin 0.00 Indirect Bilirubin 0.8 Aspartate Amino Transf (AST/SGOT) 42 Alanine Aminotransferase (ALT/SGPT) 42 Alkaline Phosphatase 119 Total Protein 7.3 Albumin 3.6 Globulin 3.70 H Albumin/Globulin Ratio 0.97 Thyroid Stimulating Hormone (TSH) 2.390 Medications Medications Current Medications Ondansetron HCl (Zofran Inj) 4 mg Q6H PRN IV NAUSEA AND/OR VOMITING; Start at 02:30 Acetaminophen (Tylenol Tab) 650 mg Q6H PRN PO PAIN LEVEL 1-3 OR FEVER Last administered on 07/21/17 01:17; Admin Dose 650 MG; Start 07/20/17 at 02:30 Docusate Sodium (Colace) 100 mg Q12H PRN PO CONSTIPATION; Start 07/20/17 at 02 :30 Bisacodyl (Dulcolax) 5 mg DAILY PRN PO CONSTIPATION; Start 07/20/17 at 02:30 Lisinopril (Zestril) 5 mg DAILY PO Last administered on 07/21/17 08:34; Admin Dose 5 MG; Start 07/20/17 at 10:00 ARABELLA KOO MD Jul 21, 2017 15:51
[2017-07-21] MEDS: RIVAROXABAN 20 MG TABLET PO SCH (18:02)
[2017-07-21] MEDS: FUROSEMIDE 20 MG INJ IV SCH (18:02)
[2017-07-21] MEDS: CLOTRIMAZOLE 1% 30 GM CR TOP SCH (20:03)
[2017-07-21] MEDS ORDERED: KETOROLAC 30 MG INJ IV ONE (20:58)
[2017-07-21 21:47] LABS: CALCIUM 8.8 mg/dl (8.4-10.2); CREATININE 2.34 mg/dl (0.61-1.24); MAGNESIUM 1.8 mg/dl (1.7-2.5)
[2017-07-22] VITALS (11 sets, daily range): BP systolic 98–110; BP diastolic 63–72; PULSE 74–80; RESP 16–20
[2017-07-22] MEDS: FUROSEMIDE 20 MG INJ IV SCH (06:07)
[2017-07-22] MEDS: LISINOPRIL 5 MG TAB PO SCH (08:16)
[2017-07-22] MEDS: CLOTRIMAZOLE 1% 30 GM CR TOP SCH ×2 (08:17→20:43)
--- NOTE | 2017-07-22 09:35 | CONS ---
Date/Time of Note Date/Time of Note DATE: 07/22/17 TIME: 09:32 Assessment/Plan Assessment/Plan Chief Complaint/Hosp Course Acute on chronic systolic biventricular heart failure: EF <20% by echo here with biventricular heart failure. Will eventually need eval for ICD and even transplant. Euvolemic to dry. May have actually diuresed more than I/Os reflect as was using the toilet Chest pain: known normal coronaries and trops negative. Likely from elevated LVEDP from ADHF NICM: EF <20% Acute on chronic renal failure: Renal function worse with diuresis +/- starting ACEI. Will hold for now -hold lasix today -start coreg at 3.125mg BID -hold lisinopril with LEESA Problems: Consultation Date/Type/Reason Admit Date/Time Jul 20, 2017 at 00:35 Initial Consult Date 07/20/17 Type of Consultation: Cardiology Referring Provider: JANIE RANDHAWA 24 HR Interval Summary Free Text/Dictation No o/n events. No SOB. Has not ambulated yet. Exam/Review of Systems Vital Signs Vitals Vital Signs Date Time Temp Pulse Resp B/P Pulse Ox O2 Delivery O2 Flow Rate FiO2 07/22/17 08:12 79 07/22/17 08:09 98.4 17 110/72 99 07/21/17 04:00 Room Air Intake and Output 07/21/17 07/21/17 07/22/17 15:00 23:00 07:00 Intake Total 1000 ml 400 ml Output Total 1600 ml 1000 ml Balance -600 ml -600 ml Exam Constitutional: alert, oriented Psych: nl mood/affect, no complaints Head: atraumatic, normocephalic Neck: supple, No jvd Respiratory: clear to auscultation Cardiovascular: regular rate and rhythm, systolic murmur (2/6 HSM), No edema Gastrointestinal: non-tender, soft Neurological: nl mental status, nl speech Results Result Diagram: 07/21/17 0554 07/21/172120 Results 24 hrs Laboratory Tests Test 07/21/17 21:21 Sodium Level 133 L Potassium Level 4.0 Chloride Level 92 L Carbon Dioxide Level 27 Anion Gap 18 H Blood Urea Nitrogen 58 H Creatinine 2.34 H Glucose Level 92 Calcium Level 8.8 Magnesium Level 1.8 Medications Medications Current Medications Ondansetron HCl (Zofran Inj) 4 mg Q6H PRN IV NAUSEA AND/OR VOMITING; Start at 02:30 Acetaminophen (Tylenol Tab) 650 mg Q6H PRN PO PAIN LEVEL 1-3 OR FEVER Last administered on 07/21/17 20:03; Admin Dose 650 MG; Start 07/20/17 at 02:30 Docusate Sodium (Colace) 100 mg Q12H PRN PO CONSTIPATION; Start 07/20/17 at 02 :30 Bisacodyl (Dulcolax) 5 mg DAILY PRN PO CONSTIPATION; Start 07/20/17 at 02:30 Lisinopril (Zestril) 5 mg DAILY PO Last administered on 07/22/17 08:16; Admin Dose 5 MG; Start 07/20/17 at 10:00 Clotrimazole (Lotrimin Cr) 1 applic BID TOP Last administered on 07/22/17 08: 17; Admin Dose 1 APPLIC; Start 07/21/17 at 21:00 BLAISE RAMOS Jul 22, 2017 09:35
--- NOTE | 2017-07-22 15:10 | PN ---
Date/Time of Note Date/Time of Note DATE: 07/22/17 TIME: 15:07 Assessment/Plan VTE Prophylaxis VTE Prophylaxis Intervention: other Lines/Catheters IV C[facility]ter Type (from [facility]): Saline Lock Urinary Cath still in place: No Assessment/Plan Chief Complaint/Hosp Course 62 yo male with acute on chronic decompensated CHF exacerbation, h/o DVT Acute on chronic decompensated CHF exacerbation: - Hold diuretics today given LEESA. Fairly euvolemic on exam - Restarted on neurohormonal blockade: Coreg 3.125. Holding lisinopirl for now given LEESA - [place] indicated eventually as well - Has had a noraml ischemic evaluation already H/o DVT: - Continue Xarelto Tinea pedis: - Clotrimin to feet Telemetry Discharge likely tomorrow with outpatient follow up Problems: Subjective 24 Hr Interval Summary Free Text/Dictation Patient feels much better today he says Very apperciated We discussed at lenght his need to have continued close care from a doctor of optometry as an outpatient Exam/Review of Systems Vital Signs Vitals Vital Signs Date Time Temp Pulse Resp B/P Pulse Ox O2 Delivery O2 Flow Rate FiO2 07/22/17 12:06 79 07/22/17 11:31 98.1 17 98/63 94 07/21/17 04:00 Room Air Intake and Output 07/21/17 07/21/17 07/22/17 14:59 22:59 06:59 Intake Total 1000 ml 400 ml Output Total 1600 ml 1000 ml Balance -600 ml -600 ml Exam JVD resolved Breathing comfortably No distress Results Result Diagram: 07/21/17 0554 07/21/172120 Results 24 hrs Laboratory Tests Test 07/21/17 21:21 Sodium Level 133 L Potassium Level 4.0 Chloride Level 92 L Carbon Dioxide Level 27 Anion Gap 18 H Blood Urea Nitrogen 58 H Creatinine 2.34 H Glucose Level 92 Calcium Level 8.8 Magnesium Level 1.8 Medications Medications Current Medications Ondansetron HCl (Zofran Inj) 4 mg Q6H PRN IV NAUSEA AND/OR VOMITING; Start at 02:30 Acetaminophen (Tylenol Tab) 650 mg Q6H PRN PO PAIN LEVEL 1-3 OR FEVER Last administered on 07/21/17t 20:03; Admin Dose 650 MG; Start 07/20/17 at 02:30 Docusate Sodium (Colace) 100 mg Q12H PRN PO CONSTIPATION; Start 07/20/17 at 02 :30 Bisacodyl (Dulcolax) 5 mg DAILY PRN PO CONSTIPATION; Start 07/20/17 at 02:30 Clotrimazole (Lotrimin Cr) 1 applic BID TOP Last administered on 07/22/17 08: 17; Admin Dose 1 APPLIC; Start 07/21/17 at 21:00 Carvedilol (Coreg) 3.125 mg BID PO Last administered on 07/22/17 10:54; Admin Dose 3.125 MG; Start 07/22/17 at 10:00 ARABELLA KOO MD Jul 22, 2017 15:10
[2017-07-22] MEDS: RIVAROXABAN 20 MG TABLET PO SCH (18:37)
[2017-07-23] VITALS (12 sets, daily range): BP systolic 100–119; BP diastolic 67–80; PULSE 71–85; RESP 18–20
[2017-07-23 07:46] LABS: CALCIUM 8.7 mg/dl (8.4-10.2); CREATININE 2.43 mg/dl (0.61-1.24); POTASSIUM 3.9 mmol/L (3.5-5.1)
[2017-07-23] MEDS: CLOTRIMAZOLE 1% 30 GM CR TOP SCH ×2 (09:35→21:30)
--- NOTE | 2017-07-23 10:36 | CONS ---
Date/Time of Note Date/Time of Note DATE: 07/23/17 TIME: 10:34 Assessment/Plan Assessment/Plan Chief Complaint/Hosp Course Acute on chronic systolic biventricular heart failure: EF <20% by echo here with biventricular heart failure. Will eventually need eval for ICD and even transplant. Euvolemic to dry. May have actually diuresed more than I/Os reflect as was using the toilet Chest pain: known normal coronaries and trops negative. Likely from elevated LVEDP from ADHF. Resolved after diuresis NICM: EF <20% Acute on chronic renal failure: Renal function worse with diuresis +/- starting ACEI. Will hold for now -hold lasix again. Would keep in hospital one more day. If Cr improves, can d/c tomorrow. Home diuretic should be bumex 1mg daily -coreg at 3.125mg BID -hold lisinopril with LEESA Problems: Consultation Date/Type/Reason Admit Date/Time Jul 20, 2017 at 00:35 Initial Consult Date 07/20/17 Type of Consultation: Cardiology Referring Provider: JANIE RANDHAWA 24 HR Interval Summary Free Text/Dictation No o/n events. Has not ambulated much. Cr about the same. No SOB. Exam/Review of Systems Vital Signs Vitals Vital Signs Date Time Temp Pulse Resp B/P Pulse Ox O2 Delivery O2 Flow Rate FiO2 07/23/17 09:07 98.2 84 18 100/69 96 07/21/17 04:00 Room Air Intake and Output 07/22/17 07/22/17 07/23/17 14:59 22:59 06:59 Intake Total 750 ml 200 ml Output Total 1000 ml 890 ml Balance -250 ml -690 ml Exam Constitutional: alert, oriented Psych: nl mood/affect, no complaints Head: atraumatic, normocephalic Neck: No jvd Respiratory: clear to auscultation, No crackles/rales, No diminished breath sounds Cardiovascular: regular rate and rhythm, No edema, No systolic murmur Gastrointestinal: non-tender, soft Neurological: nl mental status, nl speech Results Result Diagram: 07/21/17 0554 07/23/17 0610 Results 24 hrs Laboratory Tests Test 07/23/17 06:10 Sodium Level 132 L Potassium Level 3.9 Chloride Level 96 L Carbon Dioxide Level 27 Anion Gap 13 Blood Urea Nitrogen 75 H Creatinine 2.43 H Glucose Level 86 Calcium Level 8.7 Medications Medications Current Medications Ondansetron HCl (Zofran Inj) 4 mg Q6H PRN IV NAUSEA AND/OR VOMITING; Start at 02:30 Acetaminophen (Tylenol Tab) 650 mg Q6H PRN PO PAIN LEVEL 1-3 OR FEVER Last administered on 07/21/17 20:03; Admin Dose 650 MG; Start 07/20/17 at 02:30 Docusate Sodium (Colace) 100 mg Q12H PRN PO CONSTIPATION; Start 07/20/17 at 02 :30 Bisacodyl (Dulcolax) 5 mg DAILY PRN PO CONSTIPATION; Start 07/20/17 at 02:30 Clotrimazole (Lotrimin Cr) 1 applic BID TOP Last administered on 07/23/17 09: 35; Admin Dose 1 APPLIC; Start 07/21/17 at 21:00 Carvedilol (Coreg) 3.125 mg BID PO Last administered on 07/23/17 10:12; Admin Dose 3.125 MG; Start 07/22/17 at 10:00 BLAISE RAMOS Jul 23, 2017 10:36
--- NOTE | 2017-07-23 16:36 | PN ---
Date/Time of Note Date/Time of Note DATE: 07/23/17 TIME: 16:33 Assessment/Plan VTE Prophylaxis VTE Prophylaxis Intervention: other Lines/Catheters IV Catheter Type (from [facility]): Peripheral IV Urinary Cath still in place: No Assessment/Plan Chief Complaint/Hosp Course 1. Acute on chronic decompensated CHF exacerbation: - Hold diuretics today given LEESA. Fairly euvolemic on exam - Restarted on neurohormonal blockade: Coreg 3.125. Holding lisinopirl for now given LEESA - [place] indicated eventually as well - Has had a normal ischemic evaluation already -Cardiology following 2. Acute kidney injury secondary to overdiuresis Chronic continues to trend up, monitor Continue to hold diuretics 3. H/o DVT: - Continue Xarelto 4. Tinea pedis: - Clotrimazole to feet Prophylaxis: Xarelto Problems: Subjective 24 Hr Interval Summary Constitutional: no complaints Exam/Review of Systems Vital Signs Vitals Vital Signs Date Time Temp Pulse Resp B/P Pulse Ox O2 Delivery O2 Flow Rate FiO2 07/23/17 16:15 71 07/23/17 15:19 98.0 18 100/73 92 07/21/17 04:00 Room Air Intake and Output 07/22/17 07/22/17 07/23/17 15:00 23:00 07:00 Intake Total 750 ml 200 ml Output Total 1000 ml 890 ml Balance -250 ml -690 ml Exam Constitutional: alert, oriented Respiratory: clear to auscultation Cardiovascular: regular rate and rhythm Gastrointestinal: soft, No distended Musculoskeletal: nl extremities to inspection Results Result Diagram: 07/21/17 0554 07/23/17 0610 Results 24 hrs Laboratory Tests Test 07/23/17 06:10 Sodium Level 132 L Potassium Level 3.9 Chloride Level 96 L Carbon Dioxide Level 27 Anion Gap 13 Blood Urea Nitrogen 75 H Creatinine 2.43 H Glucose Level 86 Calcium Level 8.7 Medications Medications Current Medications Ondansetron HCl (Zofran Inj) 4 mg Q6H PRN IV NAUSEA AND/OR VOMITING; Start at 02:30 Acetaminophen (Tylenol Tab) 650 mg Q6H PRN PO PAIN LEVEL 1-3 OR FEVER Last administered on 07/21/17t 20:03; Admin Dose 650 MG; Start 07/20/17 at 02:30 Docusate Sodium (Colace) 100 mg Q12H PRN PO CONSTIPATION; Start 07/20/17 at 02 :30 Bisacodyl (Dulcolax) 5 mg DAILY PRN PO CONSTIPATION; Start 07/20/17 at 02:30 Clotrimazole (Lotrimin Cr) 1 applic BID TOP Last administered on 07/23/17 09: 35; Admin Dose 1 APPLIC; Start 07/21/17 at 21:00 Carvedilol (Coreg) 3.125 mg BID PO Last administered on 07/23/17 10:12; Admin Dose 3.125 MG; Start 07/22/17 at 10:00 KIKI BROOKS Jul 23, 2017 16:36
[2017-07-23] MEDS: RIVAROXABAN 20 MG TABLET PO SCH (17:37)
[2017-07-24] VITALS (7 sets, daily range): BP systolic 92–123; BP diastolic 54–74; PULSE 83–92; RESP 18–20
[2017-07-24 08:37] LABS: CALCIUM 9.4 mg/dl (8.4-10.2); CREATININE 1.82 mg/dl (0.61-1.24); MAGNESIUM 2.4 mg/dl (1.7-2.5); POTASSIUM 4.7 mmol/L (3.5-5.1)
[2017-07-24] MEDS: CLOTRIMAZOLE 1% 30 GM CR TOP SCH (08:43)
[2017-07-24] MEDS ORDERED: CARV3.1260 PO (09:32)
--- NOTE | 2017-07-24 09:33 | PDOCDIS ---
Discharge Instructions CONDITION Patient Condition: Good HOME CARE INSTRUCTIONS: Special Diet: 2 gr Na diet ACTIVITY: Activity Restrictions: No Restrictions FOLLOW UP/APPOINTMENTS Follow-up Plan F/U WITH YOUR PCP IN 1-2 WEEKS, F/U WITH A [facility] IN 1-2 WEEKS KIKI BROOKS Jul 24, 2017 09:33
--- NOTE | 2017-07-24 13:31 | CONS ---
Date/Time of Note Date/Time of Note DATE: 07/24/17 TIME: 13:30 Assessment/Plan Assessment/Plan Chief Complaint/Hosp Course Acute on chronic systolic biventricular heart failure: EF <20% by echo here with biventricular heart failure. Will eventually need eval for ICD and even transplant. Euvolemic Chest pain: known normal coronaries and trops negative. Likely from elevated LVEDP from AD[facility]. Resolved after diuresis NICM: EF <20% Acute on chronic renal failure: Renal function worse with diuresis, now resolved -ok for d/c -Home diuretic should be bumex 1mg daily -coreg 3.125mg BID -hold lisinopril with LEESA, resume as outpt Problems: Consultation Date/Type/Reason Admit Date/Time Jul 20, 2017 at 00:35 Initial Consult Date 07/20/17 Type of Consultation: Cardiology Referring Provider: JAINE RANDHAWA 24 HR Interval Summary Free Text/Dictation Feels well. Cr better. No SOB Exam/Review of Systems Vital Signs Vitals Vital Signs Date Time Temp Pulse Resp B/P Pulse Ox O2 Delivery O2 Flow Rate FiO2 07/24/17 12:06 83 07/24/17 11:22 98.2 20 95/67 97 07/21/17 04:00 Room Air Intake and Output 07/23/17 07/23/17 07/24/17 14:59 22:59 06:59 Intake Total 300 ml Balance 300 ml Exam Constitutional: alert, oriented Psych: nl mood/affect, no complaints Head: atraumatic, normocephalic Neck: supple, No jvd Respiratory: clear to auscultation Cardiovascular: regular rate and rhythm, systolic murmur (2/6 HSM), No edema Gastrointestinal: non-tender, soft Neurological: nl mental status, nl speech Results Result Diagram: 07/21/17 0554 07/24/17 0746 Results 24 hrs Laboratory Tests Test 07/24/17 07:46 Sodium Level 134 L Potassium Level 4.7 Chloride Level 98 Carbon Dioxide Level 27 Anion Gap 14 Blood Urea Nitrogen 65 H Creatinine 1.82 H Glucose Level 93 Calcium Level 9.4 Magnesium Level 2.4 Medications Medications Current Medications Ondansetron HCl (Zofran Inj) 4 mg Q6H PRN IV NAUSEA AND/OR VOMITING; Start at 02:30 Acetaminophen (Tylenol Tab) 650 mg Q6H PRN PO PAIN LEVEL 1-3 OR FEVER Last administered on 07/21/17 20:03; Admin Dose 650 MG; Start 07/20/17 at 02:30 Docusate Sodium (Colace) 100 mg Q12H PRN PO CONSTIPATION; Start 07/20/17 at 02 :30 Bisacodyl (Dulcolax) 5 mg DAILY PRN PO CONSTIPATION; Start 07/20/17 at 02:30 Clotrimazole (Lotrimin Cr) 1 applic BID TOP Last administered on 07/24/17 08: 43; Admin Dose 1 APPLIC; Start 07/21/17 at 21:00 Carvedilol (Coreg) 3.125 mg BID PO Last administered on 07/24/17 08:41; Admin Dose 3.125 MG; Start 07/22/17 at 10:00 BLAISE RAMOS Jul 24, 2017 13:31
--- NOTE | 2017-07-25 18:28 | DS ---
Date/Time of Note Date/Time of Note DATE: 07/25/17 TIME: 18:24 Discharge Summary Admission/Discharge Info Admit Date/Time Jul 20, 2017 at 00:35 Discharge Date/Time Jul 24, 2017 at 13:33 Discharge Diagnosis 1. Acute on chronic decompensated CHF exacerbation: Resolved -Continue home meds - Tomasz indicated eventually as well - Has had a normal ischemic evaluation already -Patient to follow-up with cardiology as an outpatient 2. Acute kidney injury secondary to overdiuresis-improved 3. H/o DVT: - Continue Xarelto 4. Tinea pedis: - Clotrimazole to feet Patient Condition: Good Hospital Course Patient is a 62 yo male with a h/o CHF and DVT who presents with 2 weeks SOB. Patient was diagnosed with acute on chronic decompensated CHF and was diuresed with improvement in his shortness of breath. Lasix was held one point due to elevation of creatinine and renal function ultimately stabilized. 2D echo showed an EF of less than 20%, patient was seen by cardiology and did require outpatient follow-up with cardiology. Patient did understand this and said that he will be following with his PCP and a excellence consultant. Patient was felt to be stable for DC and on the day of discharge patient's vitals, labs and physical exam stable, had no further complaints and questions were answered. Home Meds Active Scripts Carvedilol* (Carvedilol*) 3.125 Mg Tablet, 3.125 MG PO BID, #60 TAB 1 Refill Prov:KIKI BROOKS 07/24/17 Tramadol HCl (Tramadol HCl) 50 Mg Tablet, 50 MG PO Q6 Y for SEVERE PAIN LEVEL 7- 10, #20 TAB Prov:MAY HANCOCK NP 12/04/16 Reported Medications Aspirin* (Aspirin* Chew) 81 Mg Tab.chew, 81 MG PO DAILY, TAB.CHEW 07/20/17 Rivaroxaban* (Xarelto*) 20 Mg Tablet, 20 MG PO WITH DINNER, TAB 07/20/17 Furosemide* (Furosemide*) 40 Mg Tablet, 40 MG PO DAILY, TAB 07/20/17 [none] Unknown Strength No Conflict Check 12/04/16 Discontinued Reported Medications Carvedilol* (Coreg*) 12.5 Mg Tablet, 12.5 MG PO BID, #60 TAB 11/17/17 Discontinued Scripts Sulfamethoxazole-Trimethoprim* (Bactrim* DS) 800-160 Mg Tab, 1 TAB PO BID for 10 Days, TAB Prov:MAY HANCOCK NP 12/04/16 Amoxicillin/Potassium Clav (Amox-Clav 875-125 mg Tablet) 875-125 mg Tab, 1 TAB PO BID for 10 Days, #20 TAB Prov:MAY HANCOCK NP 12/04/16 Follow-up Plan F/U WITH YOUR PCP IN 1-2 WEEKS, F/U WITH A ADMINISTRATIVE FELLOW IN 1-2 WEEKS Primary Care Provider Narinder Moss Time spent on discharge: > 30 minutes KIKI BROOKS Jul 25, 2017 18:28
== END 2017-07-24 13:33 | disposition home or self-care (01) | DRG 291 ==
LOC: E/R 20:49 → TEL 07-20 00:35
PROVIDERS: ADMIT Family Medicine; ATTEND Family Medicine
DX: I13.0 Hypertensive heart and chronic kidney disease with heart failure and stage 1 through stage 4 chronic kidney disease, or unspecified chronic kidney disease (principal); I50.23 Acute on chronic systolic (congestive) heart failure; N17.9 Acute kidney failure, unspecified; I42.9 Cardiomyopathy, unspecified; N18.9 Chronic kidney disease, unspecified; I25.2 Old myocardial infarction; B35.3 Tinea pedis; Z79.01 Long term (current) use of anticoagulants; Z86.718 Personal history of other venous thrombosis and embolism; I50.82 Biventricular heart failure; Z98.61 Coronary angioplasty status
CPT/HCPCS: 36415; 71010; 80048; 80053; 80061; 82550; 82553; 82728; 83036; 83540; 83735; 83880; 84443; 84484; 85025; 93005; 93306; J1940; J1885; J1956; J2270

== ENCOUNTER 2017-09-10 02:05 | Inpatient (IN) | END 2017-09-24 18:11 | disposition home or self-care (01) | DRG 150 ==

== ENCOUNTER 2017-10-10 15:12 | Inpatient (IN) | END 2017-10-18 15:28 | disposition hospice, inpatient (51) | DRG 554 ==